=== PATIENT | female | born 2000 | race Caucasian/White ===

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

== ENCOUNTER 2022-09-05 09:27 | Outpatient (CLI) | payer OTHER | END 2022-09-05 09:28 | disposition home or self-care (01) | LOC: RT 09:27 | PROVIDERS: ATTEND Pediatrics | DX: R00.0 Tachycardia, unspecified (principal); R00.2 Palpitations | CPT/HCPCS: 93005 ==

== ENCOUNTER 2023-01-11 18:49 | Outpatient (CLI) | payer OTHER ==
--- NOTE | 2023-01-11 20:12 | XRAY Report ---
PROCEDURE: Chest 2 View X-Ray INDICATIONS: CHEST PAIN TECHNIQUE: 2 views of the chest were acquired. COMPARISON: None available. FINDINGS: Surgical changes and devices: There are postsurgical changes status post posterior fixation of the t horacal lumbar spine partially visualized. Lungs and pleura: There is an indistinct confluent right infrahilar opacity. No pleural effusions or definite pneumothorax. Mediastinum: Heart size is normal. Bones and chest wall: There is an S-shaped scoliosis of the thoracolumbar spine and dysmorphic appea flavia of the right chest wall. Overlying soft tissues appear unremarkable. IMPRESSION: 1. Confluent indistinct opacity in the right infrahilar region is nonspecific and may represent pneum onia. Recommend correlation clinically and consider short-term follow-up to demonstrate resolution. Reviewed by: Walter Carney MD on 01/11/2023 8:11 PM PDT Approved by: Walter Carney MD on 01/11/2023 8:11 PM PDT Station ID: [id number]
== END 2023-01-11 18:50 | disposition home or self-care (01) ==
LOC: DI 18:49
PROVIDERS: ATTEND Pediatrics
DX: R91.8 Other nonspecific abnormal finding of lung field (principal)

== ENCOUNTER 2023-02-19 17:58 | Outpatient (CLI) | payer OTHER ==
--- NOTE | 2023-02-19 19:16 | XRAY Report ---
PROCEDURE: Chest 2 View X-Ray INDICATIONS: PNA TECHNIQUE: 2 views of the chest were acquired. COMPARISON: None. FINDINGS: Surgical changes and devices: None. Lungs and pleura: No pleural effusions or pneumothorax. Lungs are clear. Mediastinum: Mediastinal contours appear normal. Heart size is normal. Bones and chest wall: No suspicious bony lesions. Overlying soft tissues appear unremarkable. Sco liosis, status post surgical fusion. IMPRESSION: Resolved right lower lobe consolidation. Reviewed by: Darian Rose on 02/19/2023 7:15 PM PDT Approved by: Darian Rose on 02/19/2023 7:15 PM PDT Station ID: [id number]
== END 2023-02-19 17:59 | disposition home or self-care (01) ==
LOC: DI 17:58
PROVIDERS: ATTEND Pediatrics
DX: J18.9 Pneumonia, unspecified organism (principal)

== ENCOUNTER 2023-07-20 15:47 | Outpatient (CLI) | payer OTHER ==
--- NOTE | 2023-07-20 16:18 | XRAY Report ---
PROCEDURE: Chest 2 View X-Ray INDICATIONS: WHEEZING TECHNIQUE: 2 views of the chest were acquired. COMPARISON: None. FINDINGS: Surgical changes and devices: Surgical fusion of the thoracolumbar and cervical spine.. Lungs and pleura: No pleural effusions or pneumothorax. Lungs are clear. Mediastinum: Mediastinal contours appear normal. Heart size is normal. Bones and chest wall: No suspicious bony lesions. Overlying soft tissues appear unremarkable. Sco liosis. IMPRESSION: No acute cardiopulmonary process. Reviewed by: Darian Rose MD on 07/20/2023 4:16 PM PST Approved by: Darian Rose MD on 07/20/2023 4:16 PM PST Station ID: [id number]
== END 2023-07-20 15:48 | disposition home or self-care (01) ==
LOC: DI 15:47
PROVIDERS: ATTEND Pediatrics
DX: R06.2 Wheezing (principal)